=== PATIENT | female | born 1945 | race Caucasian/White ===

== ENCOUNTER 2019-02-17 08:09 | Day surgery (SDC) | payer MEDICAID ==
[2019-02-13 11:18] LABS: BASOPHILS % (AUTO) 0.5 % (0.0-2.0); EOSINOPHILS # (AUTO) 0.3 K/uL (0-0.4); EOSINOPHILS % (AUTO) 4.7 % (0.0-4.0); HEMATOCRIT 41.9 % (36-48); HEMOGLOBIN 14.1 g/dL (12.0-16.0); LYMPHOCYTES % (AUTO) 16.3 % (20.5-51.1); MEAN CORPUSCULAR HEMOGLOBIN 30 pg (27-31); MEAN CORPUSCULAR HGB CONC 34 g/dL (33-37); MONOCYTES # (AUTO) 0.6 K/uL (0.8-1.0); NEUTROPHILS # (AUTO) 4.4 K/uL (1.8-7.7); NEUTROPHILS % (AUTO) 68.5 % (42.2-75.2); PLATELET COUNT (AUTO) 235 K/uL (140-450); RED BLOOD CELL COUNT(AUTO) 4.66 MIL/uL (4.20-5.40); RED CELL DISTRIBUTION WIDTH 14.3 % (11.6-13.7); WHITE BLOOD COUNT (AUTO) 6.4 K/uL (4.8-10.8)
[2019-02-13 11:31] LABS: ALBUMIN 3.9 g/dL (3.4-5.0); ANION GAP 9.3 (8-16); ASPARTATE AMINOTRANSFERASE 27 U/L (15-37); CARBON DIOXIDE 31.5 mmol/L (21-32); CHLORIDE 105 mmol/L (98-107); GLUCOSE 95 mg/dL (74-106); POTASSIUM 4.8 mmol/L (3.5-5.1); SODIUM SERUM 141 mmol/L (136-145); TOTAL BILIRUBIN 0.3 mg/dL (0.0-1.0); UREA NITROGEN, BLOOD 20 mg/dL (7-18)
[~2019-02-17] VITALS: Ht 165.1 cm; Wt 75.7 kg
[2019-02-17] MEDS ORDERED: BUPIVACAINE-MPF/EPI 0.25% 30 ML VIAL INJ ONE (09:36)
[2019-02-17] MEDS ORDERED: LACTATED RINGERS 1,000 ML IV SCH (10:46)
[2019-02-17] MEDS ORDERED: fentaNYL 0.05 MG/ML VIAL ONE (10:50)
[2019-02-17] MEDS ORDERED: ONDANSETRON 4 MG/2 ML VIAL IVP PRN (10:50)
[2019-02-17] MEDS ORDERED: diphenhydrAMINE 50 MG/ML VIAL IVP PRN (10:50)
[2019-02-17] MEDS ORDERED: MIDAZOLAM 2 MG/2 ML VIAL ONE (10:50)
[2019-02-17] MEDS ORDERED: MORPHINE SULFATE 4 MG/ML SYR IV PRN (11:20)
[2019-02-17] MEDS ORDERED: ONDANSETRON 4 MG/2 ML VIAL IV PRN (11:20)
[2019-02-17] MEDS ORDERED: HYDROcodone/APAP 5/325 MG 1 TAB TAB PO PRN (11:20)
[2019-02-17] MEDS ORDERED: MORPHINE SULFATE 2 MG/ML SYR IVP PRN (11:20)
[2019-02-17] MEDS ORDERED: HYDROmorphone 1 MG/ML AMP IVP PRN (11:20)
== END 2019-02-17 12:20 | disposition home or self-care (01) ==
LOC: MOR 08:09 → MMU 08:09 → MOR 12:20
PROVIDERS: ATTEND Surgery
DX: Z45.2 Encounter for adjustment and management of vascular access device (principal); I10 Essential (primary) hypertension; Z90.12 Acquired absence of left breast and nipple; Z88.5 Allergy status to narcotic agent; Z85.79 Personal history of other malignant neoplasms of lymphoid, hematopoietic and related tissues
CPT/HCPCS: 36415; 36590; 71045; 80053; 85025; 88300; J0690; J2250; J3010; J3490; J7060; J7120